=== PATIENT | female | born 1995 | race Caucasian/White ===

== ENCOUNTER 2019-11-30 05:23 | Inpatient (IN) | payer BC, SELFPAY ==
--- NOTE | 2019-11-30 05:53 | HPE_ITS ---
History of Present Illness Erika is 24 yo @ 38 4/7 weeks in active labor. Onset ctx during day 11/28 - intensified overnight with steady 2-3 min interval since ~11 PM. No ROM, consistent FMVT, no VARMA, vision changes, swelling. Partner/ Christopher present and engaged as support. Eval at [facility] - Cat 1 NST, ctx Q 2-3 - no decels and cervix 3 cm/100/-2/vtx/bulgi ng bag PN records reviewed Pos GBS O: Alert, comfortable between ctx and - firm with ctx no edema clear lungs cvs - reg, no murmur no thyroid palpable A: Early/Active labor GBS pos Maternal and wellbeing P: Routine prophy abx ordered ambulate, tub, position changes for labor support Admit for expected S. [place] Results Labs Result diagrams: 11/30/19 05:23 COVID-19 Screening Traveled to [place] from one of the affected countries or regions?: NO Recent travel in the [place] within the last 14 days?: No Recent out of the country travel within the last 14 days?: No Exposure or possible exposure to illness during travel?: No Had IN PERSON contact w/suspected or confirmed C-19 person: No Have you had the following symptoms in the past few days?: No Medical treatment received for symptoms/illness related to travel?:
[2019-11-30 06:04] LABS: HCT 34.9 % (36.0-46.0); HGB 11.9 g/dL (12.0-15.5); Mean Corp. HGB Concentration 34.1 g/dL (32.0-36.0); Mean Corpuscular Volume 84.9 fL (80-95); Mean Platelet Volume 11.2 fL (8.0-11.0); Platelet Count 224 x1000/uL (130-400); RBC 4.11 m/cumm (4.00-5.20); RBC Distribution Width 13.6 % (11.7-14.6); White Blood Cell Count 9.68 k/cumm (4.4-10.8)
[2019-11-30] MEDS: Penicillin G POT. 5,000,000 UNITS in Normal Saline 100 ML 200 UNITS IVPB (06:16)
[2019-11-30] MEDS: Normal Saline Flush 10 ML SYR IVP (09:10)
[2019-11-30] MEDS: Acetaminophen 325 MG TAB 650 MG PO (16:39)
[2019-11-30] MEDS: Hamamelis Leaf/Glycerin 100 EACH BOX PR (16:40)
[2019-11-30] MEDS: Ibuprofen 600 MG TAB PO (16:40)
[2019-11-30 22:03] LABS: COVID-19 RT-PCR UVMMC Result Negative (Negative)
[2019-12-01 06:16] LABS: HCT 31.1 % (36.0-46.0); HGB 10.2 g/dL (12.0-15.5); Mean Corp. HGB Concentration 32.8 g/dL (32.0-36.0); Mean Corpuscular Hemoglobin 28.2 pg (27.0-33.0); Mean Corpuscular Volume 85.9 fL (80-95); Platelet Count 219 x1000/uL (130-400); RBC 3.62 m/cumm (4.00-5.20); RBC Distribution Width 13.8 % (11.7-14.6)
--- NOTE | 2019-12-01 16:41 | W.PM.DS.N ---
Discharge Plan Disposition Patient Disposition: HOME Condition: Good Discharge Details Reason For Visit: TERM LABOR Admit Date/Time: 11/30/19 05:23 Admit Provider: Chavo Parrish Attending Provider: Chavo Parrish Primary Care Provider: Cruzito Rivera Home Meds and New Rx's Prescriptions: No Action sertraline 100 mg Tablet 100 mg PO DAILY RF: 0 28-800 mg-mcg Tablet 1 tab PO DAILY AM RF: 0 Discharge Instructions Stand Alone Forms: BC Instructions, BC Post Vaginal Deliver Activity:: Activity as Tolerated Equipment/Supplies:: No Equipment Needed Diet:: As Tolerated Discharge Orders Discharge Orders: Discharge Order (Routine); Ordered 12/01/19 Ordered By: Chavo Parrish DS: Summary Status at Discharge Functional status at discharge: independent ambulation Overall status at discharge: patient is back to baseline Mental Status: mental status grossly normal Speech and Movement: speech and movement normal Mood: congruent mood Affect: normal affect Exam Psych Mental Status: mental status grossly normal Speech and Movement: speech and movement normal Mood: congruent mood Affect: normal affect DS: Data Vitals/I&O Vitals and I&O: Vital Signs Pain Level 2 11/30/19 16:40 Intake & Output 11/30/19 12/01/19 12/01/19 23:59 11:59 23:59 Intake Total 50 / 200 Balance 50 / 200 Intake: IV 50 / 200 Data Completed and Pending Labs on day of discharge: Labs from last 24 hours 12/01/19 11/30/19 06:10 06:30 WBC 13.90 H D RBC 3.62 L Hgb 10.2 L Hct 31.1 L MCV 85.9 MCH 28.2 MCHC 32.8 RDW 13.8 Plt Count 219 MPV 11.0 COVID-19 PCR Negative Nasopharyn COVID-19 PCR Not Applicable Ref Test Perform Site [facility] lab
== END 2019-12-01 17:30 | disposition home or self-care (01) | DRG 807 ==
PROVIDERS: Admitting Provider Family Medicine; PCP Family Medicine; Visit Provider Family Medicine
DX: O99.824 Streptococcus B carrier state complicating childbirth (principal); Z37.0 Single live birth; O69.81X0 Labor and delivery complicated by cord around neck, without compression, not applicable or unspecified; O76 Abnormality in fetal heart rate and rhythm complicating labor and delivery; Z3A.39 39 weeks gestation of pregnancy; Z11.59 Encounter for screening for other viral diseases
CPT/HCPCS: 36415; 85027; 86850; 86900; 86901; 99222; 99238; U0003; J2540

== ENCOUNTER 2021-02-09 15:09 | Outpatient (CLI) | payer MEDICAID, SELFPAY ==
--- NOTE | 2021-02-09 | DI.US_ITS ---
Exam(s) US OB 1ST TRIMESTER EXAM: US OB 1ST TRIMESTER CLINICAL HISTORY: ENCOUNTER FOR , Z34.90. TECHNIQUE: First trimester obstetrical ultrasound was performed. COMPARISON: No exams were available for comparison FINDINGS: There is an intrauterine gestational sac which contains a yolk sac and a tiny pole which exhibi ts crown lump length 0.4 millimeters corresponds 5 weeks and 6 days. There is no heart rate ob served at this time. There is no evidence of subchorionic hemorrhage. Maternal ovaries: Right ovary measures 2.3 x 2.7 x 1.9 cm. Left ovary measures 3.2 x 3.8 x 1.6 cm.. Both ovaries appear unremarkable. No dominant cyst. There are no extraovarian adnexal masses. There is no fluid in the cul-de-sac and adnexal regions. IMPRESSION:: There is an intrauterine gestation which is approximately 5 weeks and 6 days gestationa l age by crown rump length measurement. There is no heart rate recorded at this time. Recommend follow-up after appropriate interval. There is no evidence of subchorionic hemorrhage. No abnormal adnexal findings. There is no free fluid evident in the cul-de-sac. DATA REPOSITORY:
== END 2021-02-09 15:29 ==
PROVIDERS: PCP Family Medicine; Visit Provider Family Medicine
DX: Z34.91 Encounter for supervision of normal pregnancy, unspecified, first trimester (principal); Z3A.01 Less than 8 weeks gestation of pregnancy
CPT/HCPCS: 76801

== ENCOUNTER 2022-05-13 04:25 | Inpatient (IN) | payer MEDICAID, SELFPAY ==
[2022-05-13] VITALS (11 sets, daily range): BP systolic 114–125; BP diastolic 69–78; PULSE 73–92; RESP 16–18; TEMP 36.4–36.7; O2SAT 92–99
[2022-05-13 05:34] LABS: Source Nasal/Nares
[2022-05-13 06:00] LABS: COVID-19 PCR Negative (Negative)
--- NOTE | 2022-05-13 09:37 | HPE_ITS ---
Date of service: 05/13/22 Time of Service: 09:37 Assessment and Plan Assessment and plan (1) : Status: Acute Assessment and plan: Erika is a 27yo with Rh+ RI HepC- HIV- GBS+ at [address]w [address] [place] [address]. She has had an uncomplicated other than a mild covid infection treated with Paxlovid in the third trimester. She is currently in early/ prodromal labor without significant cervical change in the last 5 hours. However, due the the speed of her first delivery and the distance she lives from the hospital, as well as her GBS+ status, she prefers to stay here. Baby is still not well engaged in her pelvis, so encouraged her to walk, sit on the ball, etc... Will monitor intermittently and begin Penicillin when contractions become more intense. No other concerns. Routine labor care. Qualifiers: Weeks of gestation: 39 weeks Qualified Code(s): Z3A.39 - 39 weeks gestation of (2) Group B streptococcal carriage complicating : Status: Acute Assessment and plan: see above OB-HPI Labor/Delivery History of Present Illness Reason for Visit: Rule Out Labor Chief Complaint: Uterine Contractions; Suspected Labor. GARY Calculator Estimated Delivery Date Method Current WG Current Estimate 05/20/22 Ultrasound #1 39w 0d Comments: Erika was seen in clinic yesterday with concern for SROM, which was negative. SVE at that time was 3/50/-3 with prodromal contractions. Later that evening she had sporadic contractions starting at about 7pm. She was able to sleep and then woke at 2pm with stronger contractions every 6-7minutes. Because her last was fairly quick (12hours) and she lives over an hour away, she called to present to the Center. On arrival, SVE 4/50/-3 with irregular contractions. She was able to sleep until morning. History of Present Expected Delivery Route/Plan Specific Issues/Plan GBS+ Assessment: History Reviewed & Current Review of Systems All systems reviewed & are unremarkable except as noted in HPI and below Constitutional Constitutional: Reports as per HPI Neurologic Neurologic: Reports system reviewed and no additional complaints, except as documented PFSH All Active Problems (Updated 05/13/22 @ 09:47 by Cruzito Rivera) Group B streptococcal carriage complicating (Acute) (Acute) Social History Smoking risk assessment performed?: No History History 2 Para 1 Hx # Term Pregnancies Multiple births Hx # Pregnancies Ectopic pregnancies AB induced Hx Number of Living Children AB spontaneous Meds Allergies and Home Medications Allergies Allergy/AdvReac Type Severity Reaction Status Date / Time No Known Allergies Allergy Unverified 11/30/19 07:58 Home Medications Medication Instructions Recorded Confirmed Type vit no.133-ferrous 1 tab PO DAILY AM 11/30/19 05/13/22 History fumarate 28 mg-folic acid 800 mcg tablet () sertraline 100 mg tablet 100 mg PO DAILY 11/30/19 05/13/22 History Exam Physical Exam Vital signs: Temp Pulse Resp BP Pulse Ox 36.4 C L 73 16 114/71 99 05/13/22 08:31 05/13/22 08:37 05/13/22 08:31 05/13/22 08:31 05/13/22 08:37 Vital Signs Reviewed: Yes Constitutional Constitutional: no acute distress Detailed Labor and Delivery Exam Dilation: 4 Effacement (%): 60 station: -3 Cervix position: mid Consistency: soft Riggins Score: Cervical Points Exam 0 1 2 3 Dilation Closed 1-2cm 3-4 cm 5-6cm Effacement 0-30% 40-50% 60-70% 80% Consistency Firm Medium Soft Station -3 -2 -1,0 +1,+2 Position Posterior Mid Anterior RIGGINS Score(Cervical Ripeness Score): 7 Amniotic Membrane Status: Intact Monitor Mode: External Contraction Frequency(min): 5-9 Contraction Duration(sec): 60 Contraction Intensity: Mild Fetus A Heart Rate Baseline: 120 Monitor Accelerations: 15 X 15 Monitor Decelerations: None Variability: Moderate (6-25 BPM) Presentation: Vertex Categories: Category I HEENT Exam HEENT Exam: Normal Breast Exam Breast Exam: Normal Respiratory Exam Respiratory Exam: Normal Cardiovascular Exam Cardiovascular Exam: Normal Abdominal Exam Abdominal Exam: Normal Exam Exam: Normal Extremities Exam Extremities Exam: Normal Skin Exam Skin Exam: Normal Neurological Exam Neurological Exam: Normal Psychiatric Exam Psychiatric Exam: Normal Results Results Group Beta Strep: Positive Blood Type: A+ Rubella Status: Immune Varicella Immunity: Not Tested Risk Assessment Risk for Shoulder Dystocia Increased Risk?: No Risk for Pre-Eclampsia Daily Dose ASA Indicated: No Risk for Post- Hemorrhage At Risk?: No Risks Reviewed Risks Reviewed Upon Admission: Yes
[2022-05-13 10:46] LABS: HCT 32.5 % (36.0-46.0); HGB 10.8 g/dL (11.2-15.7); MCH 28.4 pg (27.0-33.0); MCHC 33.2 % (32.0-36.0); MCV 86 fL (80-95); MPV 10.6 fL (8.0-11.0); Platelet Count 219 10^3/uL (130-400); RDW 14.9 % (11.7-14.6); RDW-SD 45.9 fL; WBC 9.74 10^3/uL (4.4-10.8)
[2022-05-13] MEDS: Normal Saline Flush 10 ML SYR IVP (13:08)
[2022-05-13] MEDS: Lactated Ringers 1,000 ML 125 ML IV (19:49)
[2022-05-13] MEDS: Penicillin G POT. 5,000,000 UNITS in Normal Saline 100 ML 200 UNITS IVPB (19:49)
--- NOTE | 2022-05-13 19:59 | W.PM.OBNL1 ---
Date of service: 05/13/22 Time of Service: 19:59 Pelvic Exam Dilation: 5 Effacement (%): 60 station: -3 Position: OP Cervix Position: mid Consistency: soft Vaginal Exam Presentation: Cephalic (confirmed with US) Contractions Monitor Mode: External Contraction Frequency(min): 6 Contraction Duration(sec): 60 Intensity: Mild/Moderate Fetus A Monitor: External (US) Heart Rate Baseline: 150 Presentation: Cephalic Variability: Moderate (6-25 BPM) Categories: Category I FHR Rhythm: Regular Characteristics: Normal Accelerations: 15 X 15 Decelerations: None Amniotic Membrane Status: Intact Assessment and Plan Assessment and plan (1) : Status: Acute Assessment and plan: Despite contractions continuing and becoming more intense, Erika has not progressed significantly. I believe baby is in OP position. She is more engaged in pelvis than previous. Discussed early labor, not yet really active. Discussed possibilty of pitocin to increase strength of contractions. Erika and Mushtaq would like to wait until morning for that and see if she progresses naturally. We will start antibiotics now however for GBS+ status which she is fine with. Continue present management. Qualifiers: Weeks of gestation: 39 weeks Qualified Code(s): Z3A.39 - 39 weeks gestation of (2) Group B streptococcal carriage complicating : Status: Acute Objective Abnormal lab results 05/13/22 Range/Units 10:28 RBC 3.80 L (3.93-5.22) 10^6/uL Hgb 10.8 L (11.2-15.7) g/dL Hct 32.5 L (36.0-46.0) % RDW 14.9 H (11.7-14.6) % Temp Pulse Resp BP Pulse Ox 36.7 C 92 H 16 122/78 92 05/13/22 18:06 05/13/22 19:34 05/13/22 18:06 05/13/22 19:34 05/13/22 15:58 Laboratory Results WBC 9.74 10^3/uL (4.4-10.8) 05/13/22 10:28 RBC 3.80 10^6/uL (3.93-5.22) L 05/13/22 10:28 Hgb 10.8 g/dL (11.2-15.7) L 05/13/22 10:28 Hct 32.5 % (36.0-46.0) L 05/13/22 10:28 MCV 86 fL (80-95) 05/13/22 10:28 MCH 28.4 pg (27.0-33.0) 05/13/22 10:28 MCHC 33.2 % (32.0-36.0) 05/13/22 10: RDW 14.9 % (11.7-14.6) H 05/13/22 10:28 Plt Count 219 10^3/uL (130-400) 05/13/22 10:28 MPV 10.6 fL (8.0-11.0) 05/13/22 10:28 COVID-19 Source Nasal/Nares 05/13/22 05:00 SARS-CoV-2 (PCR) Negative (Negative) 05/13/22 05:00 Patient ABO/Rh A Positive 05/13/22 10: Antibody Screen NEGATIVE 05/13/22 10:28 Vital Signs Reviewed: Yes Subjective Patient Reports: No new Complaints Interval history since last seen: Over the course of the day, contractions have gotten a bit more intense and she feels increased pressure in her pelvis. Results Hemoglobin/Hematocrit: Hgb 10.8 g/dL (11.2-15.7) L 05/13/22 10:28 Hct 32.5 % (36.0-46.0) L 05/13/22 10:28 Abnormal Lab Findings: Abnormal Labs 05/13/22 10: RBC 3.80 L Hgb 10.8 L Hct 32.5 L RDW 14.9 H
[2022-05-14] VITALS (59 sets, daily range): BP systolic 105–121; BP diastolic 56–86; PULSE 0–146; RESP 16–18; TEMP 36.4–36.7; O2SAT 98–100
[2022-05-14] MEDS: Penicillin G POT. 3,000,000 UNITS in Normal Saline 50 ML 100 UNITS IVPB ×3 (01:30→10:07)
[2022-05-14] MEDS: Normal Saline Flush 10 ML SYR IVP (05:43)
--- NOTE | 2022-05-14 07:27 | W.PM.OBNL1 ---
Date of service: 05/14/22 Time of Service: 07:27 Informed Consent Informed Consent: Augmentation of Labor Pelvic Exam Dilation: 6 Effacement (%): 60 station: -3 Position: OP Cervix Position: mid Consistency: soft BISHOPS Score(Cervical Ripeness Score): 7 Vaginal Exam Presentation: Cephalic Contractions Monitor Mode: External Contraction Frequency(min): 6 Contraction Duration(sec): 60 Intensity: Moderate Fetus A Monitor: External (US) Heart Rate Baseline: 150 Presentation: Cephalic Variability: Moderate (6-25 BPM) Categories: Category I FHR Rhythm: Regular Characteristics: Normal Accelerations: 15 X 15 Decelerations: None Amniotic Membrane Status: Intact Assessment and Plan Assessment and plan (1) Group B streptococcal carriage complicating : Status: Acute (2) : Status: Acute Assessment and plan: Erika is doing well and was able to rest overnight, although contractions did become more intense. She was in the tub, and has done some hands and knees to help baby turn. Minimal cervical change. Discussed again adding pitocin to help progression. She would like to wait a couple more hours. I did feel bulging back on last check but baby is still too high for me to feel comfortable with AROM. However that would be a good next step should baby descend a bit. No no progress by 9am, we agreed we will start pitocin. Qualifiers: Weeks of gestation: 39 weeks Qualified Code(s): Z3A.39 - 39 weeks gestation of Objective Abnormal lab results 05/13/22 Range/Units 10:28 RBC 3.80 L (3.93-5.22) 10^6/uL Hgb 10.8 L (11.2-15.7) g/dL Hct 32.5 L (36.0-46.0) % RDW 14.9 H (11.7-14.6) % Temp Pulse Resp BP Pulse Ox 36.5 C 71 16 105/56 L 92 05/14/22 07:12 05/14/22 07:12 05/14/22 07:12 05/14/22 07:12 05/13/22 15:58 Laboratory Results WBC 9.74 10^3/uL (4.4-10.8) 05/13/22 10:28 RBC 3.80 10^6/uL (3.93-5.22) L 05/13/22 10: Hgb 10.8 g/dL (11.2-15.7) L 05/13/22 10:28 Hct 32.5 % (36.0-46.0) L 05/13/22 10: MCV 86 fL (80-95) 05/13/22 10:28 MCH 28.4 pg (27.0-33.0) 05/13/22 10: MCHC 33.2 % (32.0-36.0) 05/13/22 10: RDW 14.9 % (11.7-14.6) H 05/13/22 10:28 Plt Count 219 10^3/uL (130-400) 05/13/22 10: MPV 10.6 fL (8.0-11.0) 05/13/22 10:28 COVID-19 Source Nasal/Nares 05/13/22 05:00 SARS-CoV-2 (PCR) Negative (Negative) 05/13/22 05:00 Patient ABO/Rh A Positive 05/13/22 10:28 Antibody Screen NEGATIVE 05/13/22 10:28 Vital Signs Reviewed: Yes Subjective Patient Reports: No new Complaints Results Hemoglobin/Hematocrit: Hgb 10.8 g/dL (11.2-15.7) L 05/13/22 10: Hct 32.5 % (36.0-46.0) L 05/13/22 10:28 Abnormal Lab Findings: Abnormal Labs 05/13/22 10: RBC 3.80 L Hgb 10.8 L Hct 32.5 L RDW 14.9 H
--- NOTE | 2022-05-14 10:23 | W.PM.OBNL1 ---
Date of service: 05/14/22 Time of Service: 10:24 Pelvic Exam Dilation: 6 Effacement (%): 60 station: -2 Position: OP Cervix Position: mid Consistency: soft Vaginal Exam Presentation: Cephalic Contractions Monitor Mode: External Contraction Frequency(min): 4 Contraction Duration(sec): 60 Intensity: Moderate Fetus A Monitor: External (US) Heart Rate Baseline: 150 Presentation: Cephalic Variability: Moderate (6-25 BPM) Categories: Category I FHR Rhythm: Regular Characteristics: Normal Accelerations: 15 X 15 Decelerations: None Amniotic Membrane Status: Ruptured Rupture Method: Artifical Amniotic Fluid: Clear Amount: copious Date of Membrane Rupture: 05/14/22 Time of Membrane Rupture: : Assessment and Plan Assessment and plan (1) : Status: Acute Assessment and plan: Erika is doing well, breathing through contractions now. I believe baby is still OP given coupling and slow decent. She will continue to do numerous position changes and spinning baby techniquest to turn her. AROM performed with copious clear fluid as well. Adequate prophylaxis recieved at this point. If no progress with these interventions, will start pitocin in the next 1-2 hours. Qualifiers: Weeks of gestation: 39 weeks Qualified Code(s): Z3A.39 - 39 weeks gestation of (2) Group B streptococcal carriage complicating : Status: Acute Objective Abnormal lab results 05/13/22 Range/Units 10: RBC 3.80 L (3.93-5.22) 10^6/uL Hgb 10.8 L (11.2-15.7) g/dL Hct 32.5 L (36.0-46.0) % RDW 14.9 H (11.7-14.6) % Temp Pulse Resp BP Pulse Ox 36.6 C 104 H 16 121/86 92 05/14/22 10:02 05/14/22 10:22 05/14/22 07:12 05/14/22 10:00 05/13/22 15:58 Laboratory Results WBC 9.74 10^3/uL (4.4-10.8) 05/13/22 10:28 RBC 3.80 10^6/uL (3.93-5.22) L 05/13/22 10:28 Hgb 10.8 g/dL (11.2-15.7) L 05/13/22 10:28 Hct 32.5 % (36.0-46.0) L 05/13/22 10: MCV 86 fL (80-95) 05/13/22 10:28 MCH 28.4 pg (27.0-33.0) 05/13/22 10:28 MCHC 33.2 % (32.0-36.0) 05/13/22 10:28 RDW 14.9 % (11.7-14.6) H 05/13/22 10:28 Plt Count 219 10^3/uL (130-400) 05/13/22 10:28 MPV 10.6 fL (8.0-11.0) 05/13/22 10:28 COVID-19 Source Nasal/Nares 05/13/22 05:00 SARS-CoV-2 (PCR) Negative (Negative) 05/13/22 05:00 Patient ABO/Rh A Positive 05/13/22 10:28 Antibody Screen NEGATIVE 05/13/22 10:28 Vital Signs Reviewed: Yes Subjective Patient Reports: No new Complaints Results Hemoglobin/Hematocrit: Hgb 10.8 g/dL (11.2-15.7) L 05/13/22 10: Hct 32.5 % (36.0-46.0) L 05/13/22 10:28 Abnormal Lab Findings: Abnormal Labs 05/13/22 10:28 RBC 3.80 L Hgb 10.8 L Hct 32.5 L RDW 14.9 H
[2022-05-14] MEDS: Oxytocin/Normal Saline 30 UNIT/500 ML BAG 167 UNITS IV (11:42)
--- NOTE | 2022-05-14 11:49 | W.OBDELIVERY ---
Date of service: 05/14/22 Time of Service: 11:49 OB Labor/ Delivery Information Baby A Delivery Delivery Method: Spontaneaous Presentation: Vertex Cephalic Position: Vertex Vertex Position: Left Occipital Anterior Breech Position: N/A Cord Description-Baby A: 3 Vessels Amniotic Fluid: Clear Delivery Outcome: Liveborn Transferred: Remains with Mother Note: Erika progressed very well after AROM, and baby spinning/position changes. Baby turned to OA position and decended well. She pushed effectively with some bradycardia to the 80s that lasted through severeal contractions. Monitor was not picking up baby so unclear if this was continuous. [place] was removed and doppler used istead. Her position was changed several times to help baby recover and maternal oxygen was given. When baby was , she struggled to push effectively so she was rotated from hands and knees position to her back at which point she easily delivered the head. There was a loose nuchal cord, delivered through. Baby appeared a bit stunned on perineum with weak cry so cord was cut however before baby was moved to warmer, she began to cry loudly, so she was placed on moms abdomen. Placenta delivered spontaneously, intact, 3 vessel cord. No lacerations. Fundus firm at umbilicus. Bleeding minimal. Providers Doctor: Cruzito Rivera Nurse: Donn Samuels Nurse: Latasha Cummins Labor/Delivery Information Number of Babies in Womb: 1 Steroids Given: None Reason Steroids Not Administered: N/A Group Beta Strep: Positive Antibiotics Administered: Yes Number of Doses of Antibiotics: 3 Rubella Status: Immune Blood Type: A+ Varicella Immunity: Not Tested Born En Route: No Maternal Complications: Prolonged Labor(>20hrs) Shoulder Dystocia: No Stages of Labor Onset of Labor Date: 05/12/22 Onset of Labor Time: 18:00 Complete Dilatation Date: 05/14/22 Complete Dilatation Time: 11:17 Labor - Stage 1 Duration: 41 hours and 17 minutes ROM Baby A: 05/14/22 ROM Baby A: 10:21 ROM Total Time- Baby A: [id number] Delivery Date-Baby A: 05/14/22 Delivery Time-Baby A: 11:34 Labor Stage 2 Duration: 17 minutes Placenta Delivery Date-Baby A: 05/14/22 Placenta Delivery Time-Baby A: 11:41 Labor-Stage 3 Duration: 7 minutes Total Length of Labor-Baby A: 41 hours and 34 minutes Placenta Status: Delivered Baby A Infant Gender: Female Gestational Status: Term (39-41.6 wks) Gestational Age in Weeks/Days: 39 Weeks and 1 Days Score-1 Minute Interval(Baby A) Heart Rate-1 minute: 100 BPM or Greater Respiratory Effort- 1 minute: Slow Respiration/Weak Cry Muscle Tone-1 minute: Active Movement Reflex Response-1 minute: Prompt Response Color-1 minute: Bluish Hands or Feet Total Score-1 minute: 8 Score-5 Minute Interval(Baby A) Heart Rate- 5 minute: 100 BPM or Greater Respiratory Effort-5 minute: Spontaneous/Strong Cry Muscle Tone-5 minute: Active Movement Reflex Response-5 minute: Prompt Response Color-5 minute: Bluish Hands or Feet Total Score- 5 minute: 9 Interventions Oxygen , Indication: bradycardia .
[2022-05-14] MEDS: Acetaminophen 325 MG TAB 650 MG PO (21:53)
[2022-05-14] MEDS: Ibuprofen 600 MG TAB PO (21:53)
[2022-05-15 02:12] VITALS: BP 108/69; PULSE 66; RESP 18; TEMP 36.6
[2022-05-15 08:30] VITALS: BP 99/54; PULSE 75; RESP 12; TEMP 36.1
[2022-05-15] MEDS: Acetaminophen 325 MG TAB 650 MG PO (12:30)
[2022-05-15] MEDS: Ibuprofen 600 MG TAB PO (12:31)
--- NOTE | 2022-05-15 16:20 | PDOC.DCSUM_ITS ---
Date of service: 05/15/22 Time of Service: 16:20 DS: Diagnosis Discharge Diagnosis (1) : Status: Acute (2) Group B streptococcal carriage complicating : Status: Acute Discharge Plan Disposition Patient Disposition: HOME Condition: Good Discharge Details Reason For Visit: Rule Out Labor Admit Date/Time: 05/13/22 09:36 Admit Provider: Cruzito Rivera Attending Provider: Cruzito Rivera Primary Care Provider: Cruzito Rivera Hospital Course Hospital Course: NB female to at term. Rapid second stage after steady first stage. Took to nursing well Mom's lochia decreased and she is doing all self care NB d/c exam: bright, conjugate gaze no neck masses intact soft an dhard palate lungs - clear cvs - reg - no murmur intact clavicles nl soft font nl moror, suck, grasp, babinski abd - soft, no masses neg hip click nl fem pulses skin - no jaundice and scant acne Home Meds and New Rx's Prescriptions: No Action sertraline 100 mg Tablet 100 mg PO DAILY 28-800 mg-mcg Tablet 1 tab PO DAILY AM Discharge Instructions Additional Instructions: D/c appts set family planning discussed - ocps at out pt Activity:: Activity as Tolerated Equipment/Supplies:: No Equipment Needed Diet:: As Tolerated Discharge Orders Discharge Orders: Discharge Order (Routine); Ordered 05/15/22 Ordered By: Chavo Parrish Delivery Delivery Info Gestational Age in Weeks/Days: 39 Weeks and 1 Days Gestational Status: Term (39-41.6 wks) Gender: Female Type of Delivery: Vaginal Delivery Date-Baby A: 05/14/22 Delivery Time-Baby A: 11:34 weight: 3530 g Length-Baby A: 51.44 cm Head Circumference-Baby A: 35.56 cm Presentation: Cephalic Cephalic Position: Vertex Vertex Position: Left Occipital Anterior Breech Position: N/A Number of Cord Vessels: 3 Total Time of ROM: [id number] Amniotic Fluid Color: Light Meconium Born En Route: No Shoulder Dystocia: No Vacuum Assisted Delivery: N/A Forcep Assisted Delivery: N/A Delivery Outcome: Liveborn -1 Minute Interval Heart Rate-1 minute: 100 BPM or Greater Respiratory Effort- 1 minute: Slow Respiration/Weak Cry Muscle Tone-1 minute: Active Movement Reflex Response-1 minute: Prompt Response Color-1 minute: Bluish Hands or Feet Total Score-1 minute: 8 -5 Minute Interval Heart Rate- 5 minute: 100 BPM or Greater Respiratory Effort-5 minute: Spontaneous/Strong Cry Muscle Tone-5 minute: Active Movement Reflex Response-5 minute: Prompt Response Color-5 minute: Bluish Hands or Feet Total Score- 5 minute: 9 Weight Assessment Weight Change: weight 3530 g Weight 81.647 kg I&O Intake/Output Totals 24 Hours: 05/14/22 05/14/22 05/15/22 05/15/22 11:59 23:59 11:59 23:59 Intake Total 150 / 150 Output Total 400 / 1400 1000 / 1400 Balance -250 / -1250 -1000 / -1250 Intake: IV 150 / 150 Output: Urine 200 / 1200 1000 / 1200 Emesis 200 / 200 Other: Urine Color Pale Straw Yellow Urine Appearance Clear Clear Urine Odor None None Voiding Methods Toilet Toilet Discharge Data/Results Time Spent with Patient Total time spent with greater than 50% in coordination of care (as documented) at patient's floor/unit and/or counseling patient:: 25 - 35 minutes Discharge Weight Weight: 81.647 kg Last Vital Signs Temp 36.1 C L 05/15/22 08:30 Pulse 75 05/15/22 08:30 Resp 12 05/15/22 08:30 BP 99/54 L 05/15/22 08:30 Pulse Ox 98 05/14/22 14:36 Visit Medications Visit Medications: Generic Name Dose Route Start Last Admin Trade Name Armando PRN Reason Stop Dose Admin Acetaminophen 650 mg 05/14/22 11:45 05/15/22 12:30 Acetaminophen 325 Mg Tab PO 650 mg Q4H PRN PRN Administration Ringer's Solution 1,000 mls @ 125 mls/hr 05/13/22 10:00 05/13/22 19:49 IV 125 mls/hr INFUSION GLENDY Administration Oxytocin/Sodium Chloride 30 unit in 500 mls @ 2 mls/hr 05/14/22 07:30 05/14/22 11:42 Pitocin/Normal Saline IV 167 milliunits/min INFUSION GLENDY 167 mls/hr Administration Protocol 2 MILLIUNITS/MIN Ibuprofen 600 mg 05/14/22 11:45 05/15/22 12:31 Ibuprofen 600 Mg Tab PO 600 mg Q6H PRN PRN Administration Sodium Chloride 0 ml 05/13/22 10:00 05/14/22 05:43 Normal Saline Flush 10 Ml Syr IVP 10 ml PRN PRN Administration Discontinued Medications Generic Name Dose Route Start Last Admin Trade Name Freq PRN Reason Stop Dose Admin Penicillin G Potassium 3,000, 50 mls @ 100 mls/hr 05/13/22 14:00 05/14/22 15:23 000 units/ Sodium Chloride IVPB Not Given Q4H GLENDY Penicillin G Potassium 5,000, 100 mls @ 200 mls/hr 05/13/22 10:04 05/13/22 19:49 000 units/ Sodium Chloride IVPB 05/13/22 10:33 200 mls/hr NOW ONE Administration Measles/Mumps/Rubella Vaccine Live 0.5 ml 05/14/22 11:45 05/14/22 15:24 Measles, Mumps, & Rubella Vaccine 0.5 Ml Vial SC 05/14/22 11:46 Not Given .ONCE ONE Maternal History Maternal Medical History Maternal History Summary Note: See Maternal History Diabetes: NEGATIVE FOR Hypertension: NEGATIVE FOR Heart disease: NEGATIVE FOR Depression/ depression: POSITIVE FOR Genetic History Patients age 35 years or older as of GARY: No Thalassemia (Belarusian, Turkish, Mediterranean, or Black: No Congenital Heart Defect: No Neural Tube Defect (Meningomyelocele, Spina Bifida, or Ancen: No Down Syndrome: No Benjamin-Sachs (Ashkenazi Mosque, Cajun, [place]er Danish): No Rubi Disease (Ashkenazi Mosque): No Sickle Cell Disease or Trait (): No Muscular Dystrophy: No Cystic Fibrosis: No Vigo's Chorea: No Mental Retardation/Autism: No Other inherited genetic or chromosomal disorder: No Maternal Metabolic Disorder (EG,TYPE 1 Diabetes, PKU): No Patient or baby's father had a child with defects: No Recurrent loss or a stillbirth: No Medications (including supplements, vitamins, herbs or o: No PFSH All Active Problems (Updated 05/13/22 @ 09:47 by Cruzito Rivera) Group B streptococcal carriage complicating (Acute) (Acute) Social History Smoking/Tobacco Use Status: Never Smoking risk assessment performed?: Yes Alcohol Intake: current Alcohol Intake frequency: holidays/special occasions only Drug use: Never Substance use type: does not use Do you feel safe at home: Yes Do you feel safe in your relationship?: Yes History History 2 Para 1 Hx # Term Pregnancies Multiple births Hx # Pregnancies Ectopic pregnancies AB induced Hx Number of Living Children AB spontaneous
--- NOTE | 2022-05-15 16:25 | W.PM.OBDISCH ---
Date of service: 05/15/22 Time of Service: 16:25 DS: Diagnosis Discharge Diagnosis (1) : Status: Acute (2) Group B streptococcal carriage complicating : Status: Acute Discharge Plan Disposition Patient Disposition: HOME Condition: Good Discharge Details Reason For Visit: Rule Out Labor Admit Date/Time: 05/13/22 09:36 Admit Provider: Cruzito Rivera Attending Provider: Cruzito Rivera Primary Care Provider: Cruzito Rivera Hospital Course Hospital Course: NB female to at term. Rapid second stage after steady first stage. Took to nursing well Mom's lochia decreased and she is doing all self care NB d/c exam: bright, conjugate gaze no neck masses intact soft an dhard palate lungs - clear cvs - reg - no murmur intact clavicles nl soft font nl moror, suck, grasp, babinski abd - soft, no masses neg hip click nl fem pulses skin - no jaundice and scant acne Home Meds and New Rx's Prescriptions: No Action sertraline 100 mg Tablet 100 mg PO DAILY 28-800 mg-mcg Tablet 1 tab PO DAILY AM Discharge Instructions Additional Instructions: D/c appts set family planning discussed - ocps at out pt Activity:: Activity as Tolerated Equipment/Supplies:: No Equipment Needed Diet:: As Tolerated Discharge Orders Discharge Orders: Discharge Order (Routine); Ordered 05/15/22 Ordered By: Chavo Parrish OB:DS Summary Summary Vaginal Delivery Method: Spontaneaous Episiotomy Description: None Laceration Description: None Laceration Extension: N/A Contraception Discussed Contraception Discussed: Yes, Gender-Baby A: Female weight: 3530 g Status at Discharge Functional status at discharge: independent ambulation Overall status at discharge: patient is back to baseline Mental Status: mental status grossly normal Speech and Movement: speech and movement normal Mood: congruent mood Affect: normal affect Exam Physical Exam Vital signs: Temp Pulse Resp BP Pulse Ox 36.1 C L 75 12 99/54 L 98 05/15/22 08:30 05/15/22 08:30 05/15/22 08:30 05/15/22 08:30 05/14/22 14:36 Fundal Exam Comment: firm at [facility] All Active Problems (Updated 05/13/22 @ 09:47 by Cruzito Rivera) Group B streptococcal carriage complicating (Acute) (Acute) Social History Smoking/Tobacco Use Status: Never Smoking risk assessment performed?: Yes Alcohol Intake: current Alcohol Intake frequency: holidays/special occasions only Drug use: Never Substance use type: does not use Do you feel safe at home: Yes Do you feel safe in your relationship?: Yes History History 2 Para 1 Hx # Term Pregnancies Multiple births Hx # Pregnancies Ectopic pregnancies AB induced Hx Number of Living Children AB spontaneous DS: Data Vitals/I&O Vitals and I&O: Vital Signs Temperature 36.1 C L 05/15/22 08:30 Pulse 75 05/15/22 08:30 Pulse Rhythm Regular 05/15/22 08:30 Respiratory Rate 12 05/15/22 08:30 Blood Pressure 99/54 L 05/15/22 08:30 Blood Pressure Mean 69 05/15/22 08:30 Pulse Oximetry 98 05/14/22 14:36 Oxygen Delivery Method Room Air 05/13/22 04:43 Oxygen Flow Rate 0 05/13/22 04:43 Pain Level 3 05/15/22 12:31 Intake & Output 05/14/22 05/15/22 05/15/22 23:59 11:59 23:59 Output Total 1000 / 1400 Balance -1000 / -1250 Weight 81.647 kg Output: Urine 1000 / 1200 Other: Urine Color Straw Urine Appearance Clear Urine Odor None Voiding Methods Toilet
[2022-05-15 19:12] VITALS: BP 111/69; PULSE 95; RESP 20; TEMP 36.8
== END 2022-05-15 18:45 | disposition home or self-care (01) | DRG 807 ==
PROVIDERS: Admitting Provider Family Medicine; PCP Family Medicine; Visit Provider Family Medicine
DX: O99.824 Streptococcus B carrier state complicating childbirth (principal); Z37.0 Single live birth; Z3A.39 39 weeks gestation of pregnancy; O69.81X0 Labor and delivery complicated by cord around neck, without compression, not applicable or unspecified; O76 Abnormality in fetal heart rate and rhythm complicating labor and delivery
CPT/HCPCS: 36415; 85027; 86850; 86900; 86901; 87635; J2540